=== PATIENT | male | born 1990 | race Caucasian/White ===

== ENCOUNTER → 2017-09-01 | Outpatient (CLI) | payer BC | END | disposition home or self-care (01) | LOC: NUC 12:54 | DX: R10.13 Epigastric pain (principal); R53.81 Other malaise; R53.83 Other fatigue | CPT/HCPCS: 78226; A9537 ==

== ENCOUNTER 2017-09-14 11:49 | Emergency (ER) | payer BC | END 2017-09-14 12:00 | disposition left against medical advice (07) | LOC: EME 11:49 | DX: R10.9 Unspecified abdominal pain (principal); Z53.21 Procedure and treatment not carried out due to patient leaving prior to being seen by health care provider ==